=== PATIENT | female | born 1980 | race Caucasian/White ===

== ENCOUNTER → 2017-04-19 | Outpatient (CLI) | payer OTHER ==
--- NOTE | ~2017-04-19 | PFR/MVV ---
[facility] [place] [address] PULMONARY FUNCTION MVV/REPORT Name: CASANDRAHANNAH WAYNE Room #: REG [facility].#: [id number] Admission: 04/19/17 Attend Phys: Jose Caruso MD Discharge: Date of : 80 Report #: [id number] THIS REPORT FOR: //name// >> SPIROMETRY: (BTPS) Height: in cm Weight: lbs kg Exam Date: PRE-RX POST-RX PRED BEST %PRED BEST %PRED %CHG FVC LITERS . . . . . . FEV1 LITERS . . . . . . FEV1/FVC % . . . . . . JVS43-87% L/Sec . . . . . . PEF L/SEC . . . . . . FEF50/FIF50 UNITLESS . . . . . . MVV L/Min . . . f 1/Min . . . >> LUNG VOLUMES: (BTPS) PRE-RX POST-RX PRED AVG %PRED AVG %PRED %CHG VC Liters . . . . . . TLC Liters . . . . . . RV Liters . . . . . . RV/TLC % . . . . . . FRC PL Liters . . . . . . FRC N2 Liters . . . . . . ERV Liters . . . . . . IC Liters . . . . . . >> DIFFUSION: DLCO ml/Min/mmHg . . . . . . DL [place] ml/Min/mmHg . . . . . . DLCO/VA ml/Min/mmHg . . . . . . VA Liters . . . . . . COMMENTS: COMMENTS: >> RESISTANCE: [facility] [address] [place] [address] PULMONARY FUNCTION MVV/REPORT Name: OSVALDOGILESJUANITAHANNAHAURY BLACK [facility] [id number] Admission: 04/19/17 Attend Phys: Jose Caruso MD Discharge: Date of : 80 Report #: [id number] PRE-RX PRED AVG %PRED Raw Total cmH20/L/Sec . . . Raw Insp cmH20/L/Sec . . . Raw Exp cmH20/L/Sec . . . Raw cmH20/L/Sec . . . Gaw L/Sec/cmH20 . . . sRaw cmH20 Sec . . . sGaw l/cmH20 Sec . . . Vtq Liters . . . # = OUTSIDE 95% CONFIDENCE INTERVAL CALIBRATION: PRED: 3.00 ACTUAL: EXP 3.01 INSP 3.02 [facility]-[id number] [facility]- [id number] >> INTERPRETATION/IMPRESSION: CC: ABDOUL HEATHERGertrudis Caruso SPIROMETRY: Baseline within normal limits. However, postbronchodilator there is a 15% change in FEV1/FVC. LUNG VOLUMES: Total lung capacity and residual volume within normal limits. DIFFUSION CAPACITY: Within normal limits. IMPRESSION: Study is essentially within normal limits. Of note, there is an increase in FEV1/FVC post-bronchodilator. Clinical correlation suggested. By: Jhon Thompson MD /nt
== END ==
LOC: PUL 09:33
DX: R06.00 Dyspnea, unspecified (principal)